=== PATIENT | female | born 1985 | race Caucasian/White ===

== ENCOUNTER 2017-09-24 15:07 | Emergency (ER) | payer BC ==
[2017-09-24 15:17] VITALS: BP 144/76; PULSE 88; RESP 20; TEMP 98.6; O2SAT 100
--- NOTE | 2017-09-24 15:41 | PD ---
HPI Chief Complaint: Abdominal Pain Time Seen by Provider: 15:25 Travel History International Travel<30 days: No Contact w/Intl Traveler<30days: No Traveled to known affect area: No History of Present Illness HPI Patient is a 32-year-old female presents emergency department for evaluation of suprapubic pain intermittent cramping and very intense with mild nausea started earlier this morning. Patient is 4 months from a spontaneous vaginal delivery, she has not had any bleeding no discharge she states she had a little temperature 2 days ago but did not take her temperature she does not know how high it was. She states she does have a history of kidney stones but this feels somewhat different and she has never had to have lithotripsy before. She does endorse some radiation to the back. No diarrhea no blood in the stool no vomiting. She states it feels much better now that she is lying down, she does not take anything to try to relieve her pain. States symptoms are intermittent, moderate in intensity, suprapubic, radiation and context as above. PFSH Past Medical History Medical History: Denies Significant Hx Influenza Vaccination: Yes ?: Not LMP: PRE BABY Past Surgical History Surgical History: No Previous Surgery Social History Alcohol Use: No Tobacco Use: No Substance Use: No Allergies-Medications (Allergen,Severity, Reaction): Coded Allergies: No Known Drug Allergies (Verified Allergy, Unknown, 09/24/17) Reported Meds & Prescriptions Reported Meds & Active Scripts Active No Active Prescriptions or Reported Medications Review of Systems Except as stated in HPI: all other systems reviewed are Neg Physical Exam Narrative GENERAL: Well-developed well-nourished no obvious distress SKIN: Focused skin assessment warm/dry. HEAD: Atraumatic. Normocephalic. EYES: Pupils equal and round. No scleral icterus. No injection or drainage. ENT: No nasal bleeding or discharge. Mucous membranes pink and moist. NECK: Trachea midline. No JVD. CARDIOVASCULAR: Regular rate and rhythm. No murmur appreciated. RESPIRATORY: No accessory muscle use. Clear to auscultation. Breath sounds equal bilaterally. GASTROINTESTINAL: There is minimal tenderness over the bladder, no rebound no percussive tenderness. There is no tenderness in the right lower or left lower quadrant, there is Eid sign negative Rovsing sign negative, psoas and obturator signs negative and there is no CVA tenderness MUSCULOSKELETAL: No obvious deformities. No clubbing. No cyanosis. No edema. NEUROLOGICAL: Awake and alert. No obvious cranial nerve deficits. Motor grossly within normal limits. Normal speech. PSYCHIATRIC: Appropriate mood and affect; insight and judgment normal. Data Data Last Documented VS Vital Signs Date Time Temp Pulse Resp B/P (MAP) Pulse Ox O2 Delivery O2 Flow Rate FiO2 09/24/17 17:22 09/24/17 16:31 82 16 98 Room Air 09/24/17 15:17 98.6 Orders Orders Urinalysis - C+S If Indicated (09/24/17 15:25) Ed Urine Pregnancytest Poc (09/24/17 15:25) Complete Blood Count With Diff (09/24/17 15:37) Iv Access Insert/Monitor (09/24/17 15:37) Sodium Chloride 0.9% Flush (Ns Flush) (09/24/17 15:45) Basic Metabolic Panel (Bmp) (09/24/17 16:21) I-Stat Profile (09/24/17 15:55) Ed Discharge Order (09/24/17 17:15) Labs Laboratory Tests Test 09/24/17 15:30 09/24/17 15:45 09/24/17 15:55 Urine Color YELLOW Urine Turbidity CLEAR Urine pH 6.0 Urine Specific Ucon GREATER/EQUAL 1.030 Urine Protein NEG mg/dL Urine Glucose (UA) NEG mg/dL Urine Ketones 15 mg/dL Urine Occult Blood NEG Urine Nitrite NEG Urine Bilirubin NEG Urine Urobilinogen 0.2 MG/DL Urine Leukocyte Esterase NEG Urine WBC 3-5 /hpf Urine Squamous Epithelial Cells 0-5 /hpf Urine Bacteria RARE /hpf Urine Mucus FEW /lpf Microscopic Urinalysis Comment CULT NOT INDICATED White Blood Count 8.7 TH/MM3 Red Blood Count 4.88 MIL/MM3 Hemoglobin 13.9 GM/DL Hematocrit 41.2 % Mean Corpuscular Volume 84.5 FL Mean Corpuscular Hemoglobin 28.5 PG Mean Corpuscular Hemoglobin Concent 33.8 % Red Cell Distribution Width 12.2 % Platelet Count 291 TH/MM3 Mean Platelet Volume 7.9 FL Neutrophils (%) (Auto) 75.8 % Lymphocytes (%) (Auto) 17.7 % Monocytes (%) (Auto) 5.2 % Eosinophils (%) (Auto) 0.8 % Basophils (%) (Auto) 0.5 % Neutrophils # (Auto) 6.6 TH/MM3 Lymphocytes # (Auto) 1.5 TH/MM3 Monocytes # (Auto) 0.5 TH/MM3 Eosinophils # (Auto) 0.1 TH/MM3 Basophils # (Auto) 0.0 TH/MM3 CBC Comment DIFF FINAL Differential Comment Bedside Hemoglobin G/DL Bedside Hematocrit % Bedside Sodium 140 MMOL/L Blood Urea Nitrogen 11 MG/DL Creatinine 0.63 MG/DL Random Glucose 77 MG/DL Calcium Level 9.3 MG/DL Sodium Level 140 MEQ/L Potassium Level 3.7 MEQ/L Chloride Level 104 MEQ/L Carbon Dioxide Level 24.0 MEQ/L Bedside Potassium 3.7 MMOL/L Bedside Chloride 102 MMOL/L Anion Gap 12 MEQ/L Bedside Blood Urea Nitrogen 13 MG/DL Bedside Creatinine MG/DL Estimat Glomerular Filtration Rate 111 ML/MIN Bedside Glucose 81 MG/DL [facility] Medical Decision Making Medical Screen Exam Complete: Yes Emergency Medical Condition: Yes Differential Diagnosis Kidney stone, UTI, ovarian torsion unlikely, bacterial vaginosis unlikely, acute abdomen unlikely. Narrative Course This is a well-appearing female with a history of kidney stones presents emergency department with suprapubic pain. She states pain was intermittent but doubled over earlier but currently she feels very well. Her abdomen is fairly benign, after period of observation patient's abdomen is no completely benign there is no tenderness at all. Her labs are reassuring her chemistry urinalysis CBC. Given the symptomology I discussed that kidney stone seen probable, her concurs however the patient's states that it does feel somewhat different. I discussed the other possibilities of ovarian cyst rupture appendicitis which I think are less likely. After discussions of all the risk benefits competitions alternatives including radiation exposure to patient discomfort as well as risks of missing diagnoses the patient was offered pelvic exam pelvic ultrasound and CAT scan and declined all 3. I think this is reasonable given my low index suspicion. The patient was counseled on symptomatic management and counseling closely and return to ED criteria. She verbalized understanding and agreement. She is stable for discharge. Of note we discussed pain management with this patient and she continues to wish to breast-feed, therefore she was offered Tylenol and declined. Diagnosis Primary Impression: Pelvic pain in female Patient Instructions: General Instructions, Pelvic Pain in Women (DC) Scripts No Active Prescriptions or Reported Meds Disposition: 01 DISCHARGE HOME Condition: Stable Romulo De La Torre MD Sep 24, 2017 15:41
[2017-09-24] MEDS ORDERED: SODIUM CHLORIDE 0.9% FLUSH 10 ML FLUSH IV FLUSH PRN (15:45)
[2017-09-24 15:48] LABS: BILIRUBIN, URINE NEG (NEG); BLOOD, URINE NEG (NEG); GLUCOSE,URINE NEG (NEG); KETONE, URINE 15 mg/dL (NEG); NITRITE,URINE NEG (NEG); URINE COLOR YELLOW (YELLW/STRAW); URINE LEUKOCYTE ESTERASE NEG (NEG)
[2017-09-24 15:58] LABS: MUCUS URINE FEW /lpf (OCC)
[2017-09-24 15:59] LABS: AUTOMATED NEUTROPHIL # 6.6 TH/MM3 (1.8-7.7); BASOPHIL % 0.5 % (0.0-2.0); EOSINOPHIL # 0.1 TH/MM3 (0-0.4); EOSINOPHIL % 0.8 % (0.0-4.0); HEMATOCRIT 41.2 % (35.0-46.0); HEMOGLOBIN 13.9 GM/DL (11.6-15.3); LYMPH % 17.7 % (9.0-44.0); LYMPHOCYTE # 1.5 TH/MM3 (1.0-4.8); MEAN CELL VOLUME 84.5 FL (80.0-100.0); MEAN CORPUSCULAR HEMOGLOBIN 28.5 PG (27.0-34.0); MEAN CORPUSCULAR HGB CONC 33.8 % (32.0-36.0); MEAN PLATELET VOLUME 7.9 FL (7.0-11.0); MONO % 5.2 % (0.0-8.0); MONOCYTE # 0.5 TH/MM3 (0-0.9); NEUT % 75.8 % (16.0-70.0); PLATELET COUNT 291 TH/MM3 (150-450); RED BLOOD COUNT 4.88 MIL/MM3 (4.00-5.30); RED CELL DISTRIBUTION WIDTH 12.2 % (11.6-17.2); WHITE BLOOD COUNT 8.7 TH/MM3 (4.0-11.0)
[2017-09-24 15:59] LABS: BACTERIA, URINE RARE /hpf; SQUAMOUS EPITHELIAL CELL URINE 0-5 /hpf (0-5)
[2017-09-24 16:31] VITALS: BP 101/69; PULSE 82; RESP 16; O2SAT 98
[2017-09-24 18:01] LABS: BLOOD UREA NITROGEN 11 MG/DL (7-18); CALCIUM 9.3 MG/DL (8.5-10.1); CHLORIDE 104 MEQ/L (98-107); CREATININE 0.63 MG/DL (0.50-1.00); GLOMERULAR FILTRATION RATE 111 ML/MIN (>89); GLUCOSE,RANDOM 77 MG/DL (74-106); SODIUM (NA) 140 MEQ/L (136-145)
== END 2017-09-24 17:33 | disposition home or self-care (01) ==
LOC: PHED 15:07
DX: R10.2 Pelvic and perineal pain (principal); R11.0 Nausea; Z87.442 Personal history of urinary calculi
CPT/HCPCS: 80048; 81001; 84703; 85025; 99283